=== PATIENT | female | born 1980 | race Caucasian/White ===

== ENCOUNTER 2016-10-24 16:57 | Emergency (ER) | payer BC ==
[2016-10-24 18:53] VITALS: BP 137/75
[2016-10-24] MEDS ORDERED: Acetaminophen TAB* 325 MG PO ONE (19:16)
--- NOTE | 2016-10-24 19:16 | UC ---
UC General HPI - HPI Summary HPI Summary: patient woke up with sore throat, ALEXIS , body aches, sinus congestion and fever - History of Current Complaint Chief Complaint: UCGeneralIllness Stated Complaint: ALEXIS,FEVER Time Seen by Provider: 10/24/16 19:09 Hx Obtained From: Patient Onset/Duration: Sudden Onset, Lasting Hours Timing: Constant Onset Severity: Moderate Current Severity: Moderate Pain Intensity: 6 Associated Signs & Symptoms: Positive: Fever, Headache - Allergy/Home Medications Allergies/Adverse Reactions: Allergies Allergy/AdvReac Type Severity Reaction Status Date / Time Avoids Opiodes AdvReac Dizziness Uncoded 10/24/16 18:47 Home Medications: Home Medications Ibuprofen TAB* [Advil TAB*] 400 mg PO Q6H PRN 10/24/16 [History Confirmed ] Oxymetazoline 0.05% NASAL SPR* [Afrin 0.05% NASAL SPRAY*] 1 spray NASAL Q12H PRN 10/24/16 [History Confirmed 10/24/16] guaiFENesin ER TAB [Mucinex*] 600 mg PO BID 10/24/16 [History Confirmed 10/24/16 ] PMH/Surg Hx/FS Hx/Imm Hx Previously Healthy: Yes - Surgical History Surgical History: Yes Surgery Procedure, Year, and Place: C-sections '98, ', Tubal '. Ear tubes- last set ~2015. Tonsilectomy '07 - Family History Known Family History: Positive: Hypertension - Social History Alcohol Use: None Substance Use Type: None Smoking Status (MU): Never Smoked Tobacco Review of Systems Constitutional: Fever, Fatigue Skin: Negative Eyes: Negative ENT: Sore Throat, Ear Ache, Nasal Discharge Respiratory: Cough Cardiovascular: Negative Gastrointestinal: Negative Genitourinary: Negative Motor: Negative Neurovascular: Negative Musculoskeletal: Myalgia Neurological: Headache Psychological: Negative All Other Systems Reviewed And Are Negative: Yes Physical Exam Triage Information Reviewed: Yes Appearance: Well-Nourished, Ill-Appearing, Pain Distress Vital Signs: Initial Vital Signs Temp 100.7 F 10/24/16 18:49 Pulse 103 10/24/16 18:49 Resp 16 10/24/16 18:49 BP 137/75 10/24/16 18:49 Pulse Ox 99 10/24/16 18:49 Vital Signs Reviewed: Yes Eye Exam: Normal Eyes: Positive: Conjunctiva Clear ENT: Positive: Hearing grossly normal, Pharyngeal erythema, Nasal congestion, Nasal drainage, TMs normal Dental Exam: Normal Neck exam: Normal Neck: Positive: Supple, Nontender, No Lymphadenopathy Respiratory Exam: Normal Respiratory: Positive: Chest non-tender, Lungs clear, Normal breath sounds Cardiovascular Exam: Normal Cardiovascular: Positive: RRR, No Murmur, Pulses Normal Abdominal Exam: Normal Abdomen Description: Positive: Nontender, No Organomegaly, Soft Bowel Sounds: Positive: Present Musculoskeletal Exam: Normal Musculoskeletal: Positive: Strength Intact, ROM Intact, No Edema Neurological Exam: Normal Neurological: Positive: Alert, Muscle Tone Normal Psychological Exam: Normal Psychological: Positive: Normal Response To Family Skin Exam: Normal Course/Dx - Course Course Of Treatment: hx obtained, exam performed, meds reviewed, tylenol ordered, rapid flu obtained positive, educated on symptom managment - Differential Dx - Multi-Symptom Provider Diagnoses: influenza Discharge - Discharge Plan Condition: Stable Disposition: AGAINST MEDICAL ADVICE Patient Education Materials: Influenza (ED) Additional Instructions: !. LOTS OF REST 2. Increase your fluid intake 3. continue with ibuprofen and tylneol for pain and fever 4. steam showers, continue with neti pot use and jimmie vapor rub. 4. Follow up with any SOB, or respiratory distress.
== END 2016-10-24 20:02 | disposition left against medical advice (07) ==
LOC: UCCORT 16:57
DX: J11.1 Influenza due to unidentified influenza virus with other respiratory manifestations (principal)
CPT/HCPCS: 87502; 99212; A9270-GY; G0463

== ENCOUNTER 2017-08-07 15:26 | Emergency (ER) | payer BC, OTHER ==
[2017-08-07 17:36] VITALS: BP 125/75
--- NOTE | 2017-08-07 17:58 | UC ---
Throat Pain/Nasal Madi HPI - HPI Summary HPI Summary: pt c/o sore throat, nasal congestion, sinus tenderness, fever, and general body aches X 1 day. - History of Current Complaint Chief Complaint: UCRespiratory Stated Complaint: CONGESTION/SORE THROAT/HEADACHE Time Seen by Provider: 08/07/17 17:48 Hx Obtained From: Patient Hx Last Menstrual Period: 07/13/17 ?: No Onset/Duration: Gradual Onset, Lasting Weeks - 1, Still Present Severity: Mild Cough: None Associated Signs & Symptoms: Positive: Sinus Discomfort, Fever Related History: T & A - Epiglottits Risk Factors Epiglottis Risk Factors: Negative - Allergies/Home Medications Allergies/Adverse Reactions: Allergies Allergy/AdvReac Type Severity Reaction Status Date / Time Avoids Opiodes AdvReac Dizziness Uncoded 08/07/17 17:37 Home Medications: Home Medications Acetaminophen [Acetaminophen Extra Stren] 1,000 mg PO ONCE 08/07/17 [History Confirmed 08/07/17] PMH/Surg Hx/FS Hx/Imm Hx Previously Healthy: Yes - Surgical History Surgical History: Yes Surgery Procedure, Year, and Place: C-sections ', ', Tubal '. Ear tubes- last set ~2015. Tonsilectomy '. pallet surgery 2017 - Family History Known Family History: Positive: Hypertension - Social History Occupation: Employed Full-time Lives: With Family Alcohol Use: Rare Substance Use Type: None Smoking Status (MU): Never Smoked Tobacco Have You Smoked in the Last Year: No Review of Systems Constitutional: Fever, Chills, Fatigue Skin: Negative Eyes: Negative ENT: Sore Throat, Sinus Congestion, Sinus Pain/Tenderness Respiratory: Negative Cardiovascular: Negative Gastrointestinal: Negative Genitourinary: Negative Motor: Negative Neurovascular: Negative Musculoskeletal: Negative Neurological: Headache Psychological: Negative Is Patient Immunocompromised?: No All Other Systems Reviewed And Are Negative: Yes Physical Exam Triage Information Reviewed: Yes Appearance: Ill-Appearing Vital Signs: Initial Vital Signs Temp 99.1 F 08/07/17 17:32 Pulse 103 08/07/17 17:32 Resp 16 08/07/17 17:32 BP 125/75 08/07/17 17:32 Pulse Ox 100 08/07/17 17:32 Vital Signs Reviewed: Yes Eye Exam: Normal ENT: Positive: TM bulging - left TM, ear tube visualized, small amount of drainage from ear tube noted, TM mild bulging, Sinus tenderness Dental Exam: Normal Neck exam: Normal Respiratory Exam: Normal Cardiovascular Exam: Normal Musculoskeletal Exam: Normal Neurological Exam: Normal Psychological Exam: Normal Skin Exam: Normal Throat Pain/Nasal Course/Dx - Differential Dx/Diagnosis Differential Diagnosis/HQI/PQRI: Otitis Media, Sinusitis, Tonsillitis, URI Provider Diagnoses: viral syndrome Discharge - Discharge Plan Condition: Stable Disposition: HOME Patient Education Materials: Viral Syndrome (ED) Forms: *Work Release Referrals: Debra Hernandes MD [Primary Care Provider] - If Needed
== END 2017-08-07 18:17 | disposition home or self-care (01) ==
LOC: UCCORT 15:26
DX: B34.9 Viral infection, unspecified (principal)
CPT/HCPCS: 87651; 99211; G0463

== ENCOUNTER 2019-10-09 16:36 | Emergency (ER) | payer BC ==
[2019-10-09 17:41] VITALS: BP 137/83
--- NOTE | 2019-10-09 18:19 | UC ---
FLU HPI - HPI Summary HPI Summary: Patient is a 39yo female presenting with nasal congestion, sore throat, and fever 2 days. Also notes nonproductive cough. Denies body aches. Denies nausea and vomiting. Notes normal appetite and fluid intake. States she took ibuprofen for fever relief. 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 - History of Current Complaint Chief Complaint: UCRespiratory Stated Complaint: FEVER, CONGESTION, COUGH Hx Obtained From: Patient Hx Last Menstrual Period: 09/19/19 Pain Intensity: 2 Pain Scale Used: 0-10 Numeric - Allergy/Home Medications Allergies/Adverse Reactions: Allergies Allergy/AdvReac Type Severity Reaction Status Date / Time Avoids Opiodes AdvReac Dizziness Uncoded 10/09/19 17:34 Home Medications: Home Medications NK [No Home Medications Reported] 10/09/19 [History Confirmed 10/09/19] PMH/Surg Hx/FS Hx/Imm Hx Previously Healthy: Yes - Surgical History Surgical History: Yes Surgery Procedure, Year, and Place: C-sections , , Tubal '. Ear tubes- last set ~2015. Tonsilectomy '. pallet surgery 2017 - Family History Known Family History: Positive: Hypertension - Social History Alcohol Use: None Substance Use Type: None Smoking Status (MU): Never Smoked Tobacco Have You Smoked in the Last Year: No Review of Systems All Other Systems Reviewed And Are Negative: Yes Constitutional: Positive: Fever ENT: Positive: Sore Throat, Sinus Congestion Respiratory: Positive: Cough Cardiovascular: Positive: Negative Gastrointestinal: Positive: Negative Musculoskeletal: Negative: Myalgia Neurological: Negative: Headache Physical Exam - Summary Physical Exam Summary: Vital Signs Reviewed: Yes A+Ox3, no distress, well-apppearing Eyes: Conjunctiva Clear ENT: Hearing grossly normal TM x 2 clear, moist, uvula midline, no exudate, no erythema Neck: Positive: Supple Respiratory: Positive: No respiratory distress, No accessory muscle use + CTA throughout no w/r Cardiovascular: RRR nl s1, s2 no m/r Musculoskeletal Exam: HERRING x 4 without difficulty Neurological: Positive: Alert Psychological: Positive: age appropriate behavior Skin: Positive: no rash, no ecchymosis Vital Signs: Initial Vital Signs Temp 98.2 F 10/09/19 17:35 Pulse 82 10/09/19 17:35 Resp 16 10/09/19 17:35 BP 137/83 10/09/19 17:35 Pulse Ox 100 10/09/19 17:35 Lab Results 10/09/19 Range/Units 17:55 Influenza A (Rapid) Pending Influenza B (Rapid) Positive (Negative) Flu Course/Dx - Course Course Of Treatment: Positive rapid flu. Patient declined treatment wiht tamiflu. Instructed to continue symptomatic treatment and to follow-up if symptoms persist or worsen. Patient voiced understanding and agreed with the treatment plan. - Differential Dx/Diagnosis Provider Diagnosis: Influenza B Discharge ED - Sign-Out/Discharge Documenting (check all that apply): Patient Departure All imaging exams completed and their final reports reviewed: No Studies - Discharge Plan Condition: Stable Disposition: HOME Patient Education Materials: Influenza (ED) Forms: *Work Release Referrals: Debra Hernandes MD [Primary Care Provider] - If Needed Additional Instructions: As discussed, you tested positive for influenza today. You may continue with over the counter cold and flu medications for fever and symptom relief. Get plenty of rest and increase your fluid intake. Follow up with your primary care provider if symptoms do not resolve within 5-7 days. Return or go to the emergency room with any new or worsening symptoms. - Billing Disposition and Condition Condition: STABLE Disposition: Home - Attestation Statements Provider Attestation: This patient was not seen by me. I was available for consult. Chart reviewed. RIKA
[2019-10-10 10:28] LABS: Influenza B Molecular POSITIVE (Negative)
== END 2019-10-09 18:27 | disposition home or self-care (01) ==
LOC: UCCORT 16:36
DX: J10.1 Influenza due to other identified influenza virus with other respiratory manifestations (principal); Z88.5 Allergy status to narcotic agent
CPT/HCPCS: 99211; G0463

== ENCOUNTER 2019-11-09 07:06 | Emergency (ER) | payer BC ==
--- OUTSIDE RECORDS SUMMARY | 2019-11-09 07:13 | XMS REPORT | Continuity of Care Document ---
:1980 External Reference #:[id number] Author Name Debra Hernandes MD Address [address] [place] [address] Care Team Providers Name Role Phone Guillaume Mai - Cardiovascular Care Team Information Personnel Generalist Manager Disease Nolan Montiel MD - Otolaryngology Care Team Information Personnel Generalist Manager Problems Active Problems Provider Date No current problems or disability Onset: 08/06/2013 Social History Type Date Description Comments Sex Unknown Tobacco Use Start: Unknown Never Smoked Cigarettes ETOH Use Denies alcohol use Tobacco Use Start: Unknown Patient has never smoked Allergies, Adverse Reactions, Alerts Active Allergies Reaction Severity Comments Date Morphine Pain/Burning At Site With Redness 08/06/2013 Medications Active Medications SIG Qnty Indications Ordering Provider Date Ibuprofen 1-2 by mouth Unknown 200mg Tablets every 6 hours with food or snack as needed pain Immunizations CPT Code Status Date Vaccine Reaction Lot # [id number] Given 05/25/2019 Influenza Virus Vaccine,Quadrivalent,Split,Pr eserv Free, 0.5mL,Im Q2039 Given 06/02/2018 Flu Vaccine NOS [id number] Given 06/02/2018 Influenza Virus Vaccine,Quadrivalent,Split,Pr eserv Free, 0.5mL,Im Q2039 Given 07/16/2016 Flu Vaccine NOS GIVEN AT WORK CAPCO [id number] Given 07/27/2010 Tdap (Adacel) Ages 7 And Above Only Vital Signs Date Vital Result Comment 09/11/2019 9:53am Weight 197.00 lb Heart Rate 84 /min BP Systolic 126 mmHg BP Diastolic 72 mmHg Respiratory Rate 18 /min Height 61.5 inches 5'1.50" O2 % BldC Oximetry 98 % Ra BMI (Body Mass Index) 36.6 kg/m2 09/29/2016 1:36pm Body Temperature 99.1 F Weight 203.00 lb Heart Rate 94 /min BP Systolic 122 mmHg BP Diastolic 80 mmHg Respiratory Rate 18 /min Height 61.5 inches 5'1.50" 09/09/16 O2 % BldC Oximetry 98 % BMI (Body Mass Index) 37.7 kg/m2 Results Test Acquired Date Facility Test Result H/L Range Note Laboratory test 09/11/2019 [facility]atitis C Virus <pending> finding Antibody Procedures Description No Information Available Medical Devices Description No Information Available Encounters Description No Information Available Assessments Date Code Description Provider 09/11/2019 S00.03xA Contusion of scalp, initial encounter Debra Hernandes MD 09/11/2019 R51 Headache Debra Hernandes MD 09/11/2019 F41.1 Generalized anxiety disorder Debra Hernandes MD 09/11/2019 Z11.59 Encounter for screening for other viral Debra Hernandes MD diseases 09/11/2019 Z11.59 Encounter for screening for other viral Schedule, Laboratory diseases 09/11/2019 S00.03xA Contusion of scalp, initial encounter Schedule, Laboratory Plan of Treatment 09/11/2019 - Debra Hernandes MDS00.03xA Contusion of scalp, initial encounterComments:Reviewed hospital record with patient and answered questions. no sign of serious injury or condition. patient is reassured.Follow up:Labs today 6 months annual physical - not Pap [id number] HeadacheComments:improving - suspect she may have had a mild concussion. reassured her there is no sign of brain tumor or stroke. please call for worsening or persistent [id number] Generalized anxiety disorderComments:Doing much better. Continue current tx. Pt to call for worsening symptoms.Z11.59 Encounter for screening for other viral diseasesComments:she is worried she may have HIV or hepatitis - We will order Hep C. We will order HIV on this patient. Functional Status Description No Information Available Mental Status Description No Information Available Referrals Description No Information Available
--- OUTSIDE RECORDS SUMMARY | 2019-11-09 07:13 | XMS REPORT | Continuity of Care Document ---
:1980 External Reference #:[id number] Author Name Debra Hernandes MD Address [address] [place] [address] Care Team Providers Name Role Phone Guillaume Mai - Cardiovascular Care Team Information Refrigerator Repairman [phone] Disease Nolan Montiel MD - Otolaryngology Care Team Information Refrigerator Repairman Problems Active Problems Provider Date No current [...] Medications SIG Qnty Indications Ordering Provider Date Macrobid 1 by mouth twice 14caps R30.0 Debra Hernandes, 11/02/2019 100mg Capsules a day x 7 days Ibuprofen 1-2 by mouth Unknown 200mg Tablets every 6 hours with food or snack as needed pain Azo Urinary Pain take 2 tabs by Unknown Relief mouth 3 times a 95mg Tablets day for 2 days after meals for urinary pain Immunizations CPT Code Status Date Vaccine Reaction Lot # [id number] Given 05/25/2019 Influenza Virus Vaccine,Quadrivalent,Split,Pr eserv Free, 0.5mL,Im Q2039 Given 06/02/2018 Flu Vaccine NOS [id number] Given 06/02/2018 Influenza Virus Vaccine,Quadrivalent,Split,Pr eserv Free, 0.5mL,Im Q2039 Given 07/16/2016 Flu Vaccine NOS GIVEN AT WORK CAPCO [id number] Given 07/27/2010 Tdap (Adacel) Ages 7 And Above Only Vital Signs Date Vital Result Comment 11/02/2019 4:23pm Weight 197.00 lb Heart Rate 83 /min BP Systolic 122 mmHg BP Diastolic 68 mmHg Respiratory Rate 18 /min Height 61.5 inches 5'1.50" O2 % BldC Oximetry 98 % Ra BMI (Body Mass Index) 36.6 kg/m2 09/11/2019 9:53am Weight 197.00 lb Heart Rate 84 /min BP Systolic 126 mmHg BP Diastolic 72 mmHg Respiratory Rate 18 /min Height 61.5 inches 5'1.50" O2 % BldC Oximetry 98 % Ra BMI (Body Mass Index) 36.6 kg/m2 Results Test Acquired Facility Test Result H/L Range Note Date Laboratory 11/02/2019 [place] Urine <pending> test finding Culture Laboratory 10/09/2019 [facility] Influenza A POSITIVE Abnormal Negative 1 test finding & B Molecular Laboratory 09/11/2019 [place] Hepatitis C NON Non 2 test finding Virus REACTIVE Reactive Antibody S/CORatio(S am 1 Turning And Beading Machine Operator: [id number] S/CO Ratio >/=1.0 is REACTIVE. S/CO <5.0 is Low Reactive. S/CO >/= 5.0 is High Reactive. Effective May 06, 2017 all anti-HCV reactive samples are sent for quantitative PCR confirmation. Procedures Description No Information Available Medical Devices Description No Information Available Encounters Type Date Location Provider Dx Diagnosis [facility] Visit 09[facility] De[facility] Hernandes MD S00.03xA Contusion of scalp , 9:45a initial encounter R51 Headache F41.1 Generalized anxiety disorder Z11.59 Encounter for screening for other viral diseases Assessments Date Code Description Provider 11/02/2019 R30.0 Dysuria Debra Hernandes MD 11/02/2019 R30.0 Dysuria Schedule, Laboratory 09/11/2019 Z11.59 Encounter for screening for other viral Debra Hernandes MD diseases 09/11/2019 S00.03xA Contusion of scalp, initial encounter Debra Hernandes MD 09/11/2019 S00.03xA Contusion of scalp, initial encounter Debra Hernandes MD 09/11/2019 R51 Headache Debra Hernandes MD 09/11/2019 F41.1 Generalized anxiety disorder Debra Hernandes MD 09/11/2019 Z11.59 Encounter for screening for other viral Debra Hernandes MD diseases 09/11/2019 Z11.59 Encounter for screening for other viral Schedule, Laboratory diseases 09/11/2019 S00.03xA Contusion of scalp, initial encounter Schedule, Laboratory 09/11/2019 Z11.59 Encounter for screening for other viral [facility] diseases Plan of Treatment 11/02/2019 - Debra Hernandes, MDR30.0 DysuriaNew Medication:Macrobid 100 mg - 1 by mouth twice a day x 7 daysComments:Check culture. Start antibiotics . Advised pt to call the office or go to ER if symptoms worsen or if she develops fever.We will send her urine for culture and sensitivity. The patient was advised to take Macrobid 100 mg one PO twice a day for 7 days.Follow up: Follow-up as scheduled for an Annual physical after she turns 40-year-old. Functional Status Description No Information Available Mental Status Description No Information Available Referrals Description No Information Available
[2019-11-09 07:25] VITALS: BP 134/74
--- NOTE | 2019-11-09 07:29 | UC ---
Skin Complaint HPI - HPI Summary HPI Summary: 39 year old female with skin complaint. Itchy rash onset last night on arms and legs, today on face; pt has one dose left of 7 day bid course of nitrofurantoin for uti. No dyspnea, no throat swelling reported. - History of Current Complaint Chief Complaint: UCRash Time Seen by Provider: 11/09/19 07:20 Stated Complaint: SKIN Hx Obtained From: Patient Hx Last Menstrual Period: 10/19/19 Pain Intensity: 0 - Allergy/Home Medications Allergies/Adverse Reactions: Allergies Allergy/AdvReac Type Severity Reaction Status Date / Time nitrofurantoin Allergy Rash And Verified 11/09/19 07:42 Itching Avoids Opiodes AdvReac Dizziness, Uncoded 11/09/19 07:25 claustrophobia Home Medications: Home Medications [id number]/Folic AC/Nadh/Coq10 [Xyzbac Tablet] 2 each PO ONCE PRN 11/09/19 [ History Confirmed 11/09/19] Nitrofurantoin Macrocrystals* [Macrodantin 100 mg*] 100 mg PO BID 11/09/19 [ History Confirmed 11/09/19] methylPREDNISolone [Medrol Dosepak 4 MG*] 0 mg PO .SEE ANNE INSTRUCTION #1 tab [Rx] PMH/Surg Hx/FS Hx/Imm Hx Previously Healthy: Yes - Surgical History Surgical History: Yes Surgery Procedure, Year, and Place: C-sections '98, ', Tubal '01. Ear tubes- last set ~2015. Tonsilectomy '07. pallet surgery 2017 - Family History Known Family History: Positive: Hypertension - Social History Alcohol Use: Occasionally Substance Use Type: None Smoking Status (MU): Never Smoked Tobacco Have You Smoked in the Last Year: No Review of Systems All Other Systems Reviewed And Are Negative: Yes Skin: Positive: Rash Physical Exam Triage Information Reviewed: Yes Appearance: Well-Appearing, No Pain Distress, Well-Nourished Vital Signs: Initial Vital Signs Temp 98.7 F 11/09/19 07:16 Pulse 98 11/09/19 07:16 Resp 18 11/09/19 07:16 BP 134/74 11/09/19 07:16 Pulse Ox 100 11/09/19 07:16 Vital Signs Reviewed: Yes Eye Exam: Normal ENT Exam: Normal Dental Exam: Normal Neck exam: Normal Neck: Positive: 1 Respiratory Exam: Normal Cardiovascular Exam: Normal Musculoskeletal Exam: Normal Neurological Exam: Normal Psychological Exam: Normal Skin: Positive: Rashes - diffuse maculolpapular rash on the arms, back and chest Course/Dx - Course Course Of Treatment: on day 7 macrobid and now with rash. stop macrobid. start xyzal AM and benadryl PM and if rash spreads start medrol as she wants to try to avoid this med. - Differential Diagnoses - Skin Complaint Differential Diagnoses: Drug Rash - Diagnoses Provider Diagnosis: Drug rash Discharge ED - Sign-Out/Discharge Documenting (check all that apply): Patient Departure All imaging exams completed and their final reports reviewed: No Studies - Discharge Plan Condition: Good Disposition: HOME Prescriptions: methylPREDNISolone [Medrol Dosepak 4 MG*] 0 mg PO .SEE ANNE INSTRUCTION #1 tab Patient Education Materials: Acute Rash (ED) Forms: *Work Release Referrals: Debra Hernandes MD [Primary Care Provider] - 3 Days - Billing Disposition and Condition Condition: GOOD Disposition: Home
== END 2019-11-09 07:52 | disposition home or self-care (01) ==
LOC: UCCORT 07:06
DX: L27.1 Localized skin eruption due to drugs and medicaments taken internally (principal); T36.8X5A Adverse effect of other systemic antibiotics, initial encounter; Y92.9 Unspecified place or not applicable; Z88.6 Allergy status to analgesic agent
CPT/HCPCS: 99212; G0463